=== PATIENT | female | born 1950 | race Caucasian/White ===

== ENCOUNTER 2025-01-27 19:20 | Emergency (ER) | payer OTHER ==
[2025-01-27] MEDS ORDERED: CEFTRIAXONE 1000 MG/VIAL ONE (19:45)
[2025-01-27] MEDS ORDERED: IBUPROFEN 400 MG TAB ONE (19:45)
[2025-01-27] MEDS ORDERED: VANCOMYCIN 1 GM/VIAL ONE (19:46)
[2025-01-27] MEDS ORDERED: NA CHLORIDE 0.9% 500 ML ONE (19:46)
[2025-01-27] MEDS ORDERED: NA CHLORIDE 0.9% 1,000 ML ONE (19:46)
[2025-01-27 20:28] LABS: Absolute Lymphocytes (CBC) 0.6 K/uL (0.7-4.9); Hematocrit 37.4 % (36.0-45.0); Hemoglobin 12.8 g/dL (12.0-15.0); MCH 30.3 pg (27.0-35.0); MCHC 34.3 g/dL (32.0-36.0); MCV 88.3 fL (80-100); MPV 8.3 fL (7.6-11.3); Nucleated RBC Absolute Count 0.0 (0-0); Nucleated Red Blood Cells % 0.0 % (0-0); RBC Red Blood Cell Count 4.23 M/uL (3.86-4.86); White Blood Count 10.60 thou/uL (4.3-10.9)
[2025-01-27 20:35] LABS: PT Prothrombin Time 13.6 SECONDS (10-13.0); PTT, Activated Partial Thromb 33.4 SECONDS (27.2-37.4); Protime INR 1.21
[2025-01-27 20:44] LABS: ALT/SGPT 88.0 U/L (13-56); AST/SGOT 51.0 U/L (15-37); Albumin 3.2 g/dL (3.4-5.0); Albumin/Globulin Ratio 0.8 (1.1-1.8); Alkaline Phosphatase 87.0 U/L (45-117); Anion Gap 10.8 mEq/L (5.0-15.0); BUN Blood Urea Nitrogen 24.0 mg/dL (7-18); Globulin 4.2 g/dL (2.3-3.5); Glucose Level 378.0 mg/dL (74-106); Lipase 28.0 U/L (13-75); Potassium 3.8 mEq/L (3.5-5.1)
[2025-01-27 20:53] LABS: NT PRO-BNP 462.0 pg/mL (<125); Troponin High Sensitivity 10.2 pg/mL (<58.9)
[2025-01-27 20:56] LABS: Influenza A Ag Negative; Influenza B Ag Negative; SARS-CoV-2 Antigen Rapid Res Negative (Negative)
[2025-01-27 21:49] LABS: Sqamous Epithelial <5 /HPF (None Seen); Urine Culture Reflex Order REFLEXED; Urine Microscopic Reflex YN ORDER UMIC; Urine WBC Clump Occasional /HPF (None Seen)
--- NOTE | 2025-01-27 23:31 | EDPHYS ---
Physician Documentation [facility] Name: Lucina Schaefer Age: 74 yrs Sex: Female : 1950 Arrival Date: 01/27/2025 Time: 19:20 Bed 17 Private MD: ED Physician Denis Harrison HPI: 01/27 19:23 This 74 yrs old Other Race Female presents to ER via Unassigned with complaints of sp4 Fever, Low Back Pain, Urinary Problem. 01/28 19:22 Very pleasant 24-year-old female presents with acute onset urinary discomfort feeling sp4 unwell and fever. . 19:23 Patient has history of poorly controlled diabetes, hypertension and hypothyroidism.. sp4 Historical: - Allergies: 00:10 Penicillins; ss12 00:10 Tape; ss12 - Home Meds: 00:10 metformin 1,000 mg Oral tablet [Active]; simvastatin 20 mg Oral tablet [Active]; ss12 bisoprolol-hydrochlorothiazide oral [Active]; [place] Thyroid 120 mg Oral tablet [Active]; - PMHx: 00:10 Diabetes mellitus; Hypertensive disorder; Hypothyroidism; ss12 - PSHx: 00:10 Ligation of fallopian tube; ss12 - Immunization history:: Adult Immunizations up to date. - Infectious Disease History:: Denies. - Social history:: Smoking status: Patient denies any tobacco usage or history of. - Family history:: not pertinent. ROS: 19:23 Constitutional: Positive for fever, positive for feeling unwell, positive for urinary sp4 frequency 19:23 All other systems are negative, Exam: 19:23 Constitutional: This is a well developed, well nourished patient who is awake, alert, sp4 and in no acute distress. Head/Face: Normocephalic, atraumatic. Eyes: Pupils equal round and reactive to light, extra-ocular motions intact. Lids and lashes normal. Conjunctiva and sclera are not injected. Cornea within normal limits. Periorbital areas with no swelling, redness, or edema. ENT: Nares patent. No nasal discharge, no septal abnormalities noted. Tympanic membranes are normal and external auditory canals are clear. Oropharynx with no redness, swelling, or masses, exudates, or evidence of obstruction, uvula midline. Mucous membranes moist. Neck: Trachea midline, no thyromegaly or masses palpated, and no cervical lymphadenopathy. Supple, full range of motion without nuchal rigidity, or vertebral point tenderness. Chest/axilla: Normal chest wall appearance and motion. Nontender with no deformity. No lesions are appreciated. Cardiovascular: Regular rate and rhythm with a normal S1 and S2. No gallops, murmurs, or rubs. No pulse deficits. Respiratory: Lungs have equal breath sounds bilaterally, clear to auscultation and percussion. No rales, rhonchi or wheezes noted. No increased work of breathing, no retractions or nasal flaring. Abdomen/GI: Soft, with normal bowel sounds. No distension or tympany. No guarding or rebound. No evidence of tenderness throughout. Back: No spinal tenderness. No costovertebral tenderness. Skin: Warm, dry with normal turgor. Normal color with no rashes, no lesions, and no evidence of cellulitis. MS/ Extremity: Pulses equal, no cyanosis. Neurovascular intact. Full, normal range of motion. Neuro: Awake and alert, GCS 15, oriented to person, place, time, and situation. Cranial nerves II-XII grossly intact. Motor strength 5/5 in all extremities. Sensory grossly intact. Psych: Awake, alert, with orientation to person, place and time. Behavior, mood, and affect are within normal limits 19:58 ECG was reviewed by the Attending Physician. EKG at 2028 normal sinus rhythm rate 98 sp4 normal EKG. Vital Signs: 01/27 19:33 BP 151 / 55; Pulse 96; Resp 18; Temp 101.3; Pulse Ox 100% ; Weight 94.35 kg; Height 5 cp4 ft. 7 in. ; Pain 7/10; 20:53 BP 159 / 73; Pulse 98; Resp 18; Pulse Ox 96% on R/A; ss12 21:30 BP 142 / 71; Pulse 94; Resp 16; Pulse Ox 96% on R/A; ss12 22:30 BP 134 / 61; Pulse 92; Resp 16; Pulse Ox 94% on R/A; ss12 23:45 BP 125 / 58; Pulse 86; Resp 16; Pulse Ox 95% on R/A; ss12 19:33 Body Mass Index 32.58 (94.35 kg, 170.18 cm) cp4 19:33 Pain Scale: Adult cp4 [place] Coma Score: 23:45 Eye Response: spontaneous(4). Motor Response: obeys commands(6). Verbal Response: ss12 oriented(5). Total: 15. MDM: 19:24 Medical Screening Exam initiated 01/28 19:28 Differential diagnosis: viral Infection, bacterial infection, URI, bronchitis, sp4 pneumonia UTI, gastroenteritis. Data reviewed: vital signs, nurses notes, lab test result(s). Consideration of Admission/Observation Escalation of care including admission/observation considered. 01/27 19:24 Order name: CBC with Diff; Complete Time: 22: [facility] 01/27 19:24 Order name: CMP; Complete Time: 22: [facility] 01/27 19:24 Order name: Lipase; Complete Time: : [facility] 01/27 19:24 Order name: UA Rfx [place] Cult if indicated; Complete Time: 22: [facility] 01/27 19:37 Order name: BNP; Complete Time: 22: [facility] 01/27 19:37 Order name: Blood Culture Adult (2) [facility] 01/27 19:37 Order name: Lactate w/ 2H reflex if indic.; Complete Time: 22: [facility] 01/27 19:37 Order name: Protime (+inr); Complete Time: 22: [facility] 01/27 19:37 Order name: Ptt, Activated; Complete Time: 22: [facility] 01/27 19:37 Order name: Troponin HS; Complete Time: 22: [facility] 01/27 19:52 Order name: COVID-19 Ag + Flu A+B Ag; Complete Time: : [facility] 01/27 20:46 Order name: Glucose, Ancillary Testing; Complete Time: 22: [facility] 01/27 21:53 Order name: Urine Culture [facility] 01/27 23:05 Order name: Glucose, Ancillary Testing; Complete Time: 23: [facility] 01/27 19:24 Order name: IV Saline Lock; Complete Time: 20: [facility] 01/27 19:24 Order name: Labs collected and sent; Complete Time: 20: [facility] 01/27 19:37 Order name: Accucheck; Complete Time: 20: [facility] 01/27 19:37 Order name: Cardiac monitoring; Complete Time: 20: [facility] 01/27 19:37 Order name: EKG - Nurse/Tech; Complete Time: 20:25 sp4 01/27 19:37 Order name: IV Saline Lock - Large Bore; Complete Time: 20:20 sp4 01/27 19:37 Order name: Labs collected and sent; Complete Time: 20:20 sp4 01/27 19:37 Order name: O2 Per Protocol; Complete Time: 20:20 sp4 01/27 19:37 Order name: O2 Sat Monitoring; Complete Time: 20:20 sp4 01/27 19:37 Order name: Vital Signs; Complete Time: 20:20 sp4 EC/27 20:29 Rate is 98 beats/min. Rhythm is regular, Normal Sinus Rhythm. QRS [place] is Normal. [place] sp4 interval is normal. QRS interval is normal. QT interval is normal. No Q waves. T waves are Normal. No ST changes noted. Clinical impression: Normal ECG. Interpreted by me. Reviewed by me. Administered Medications: 20:05 Drug: Ibuprofen PO 800 mg PO once Route: PO; [facility] 01/28 00:20 Follow up: Response: No adverse reaction [facility] 01/27 20:05 Drug: NS 0.9% IV (30 ml/kg) 30 ml/kg IV at bolus once; Sepsis Protocol; to be given as ss12 a bolus over 90 minutes Route: IV; Rate: bolus; Site: right antecubital; 21:00 Follow up: Response: No adverse reaction; IV Status: Completed infusion; IV Intake: ss12 1000ml 20:18 Drug: Rocephin - Rocephin (cefTRIAXone) IVPB 1 grams IVPB once over 30 mins; (mix in 50 ss12 mL NS) Route: IVPB; Infused Over: 30 mins; Site: right antecubital; 20:45 Follow up: Response: No adverse reaction; IV Status: Completed infusion; IV Intake: [id number] 20:20 Drug: vancoMYCIN IVPB 2 grams IVPB at calculated rate once Route: IVPB; Rate: ss12 calculated rate; Site: left antecubital; 23:00 Follow up: Response: No adverse reaction; IV Status: Completed infusion; IV Intake: ss12 500ml 20:23 Not Given (pt took acetaminophen before coming to the hospital): [id number] mg ss12 PO once Disposition: 01/28 19:29 Chart complete. sp4 Disposition Summary: 01/27/25 23:30 Discharge Ordered Notes: We advise strict diabetic diet Location: Home sp4 Problem: new sp4 Symptoms: have improved sp4 Condition: Stable sp4 Diagnosis - Acute UTI, acute febrile illness sp4 Followup: sp4 - With: Private Physician - When: 7 - 10 days - Reason: Recheck today's complaints Discharge Instructions: - Discharge Summary Sheet sp4 - Urinary Tract Infection, Adult, [id number] sp4 - Diabetes Mellitus and Nutrition, Adult sp4 Forms: - Patient Portal Instructions sp4 Prescriptions: - cefdinir 300 mg Oral capsule - take 1 capsule ORAL route every 12 hours for 10 days; 20 capsule; Refills: 0, sp4 Product Selection Permitted - ondansetron 8 mg Oral Tablet,disintegrating - take 1 tablet ORAL route every 8 hours PRN nausea; 30 tablet; Refills: 0, sp4 Product Selection Permitted Signatures: Dispatcher [employer] EDMS Denis Harrison MD MD sp4 Emerita Nolasco Shamaila, RN RN ss12 Corrections: (The following items were deleted from the chart) 01/27 19:38 19:38 PROBNP+C.LAB.BRZ ordered. EDMS EDMS 19:38 19:38 BLOOD CULTURE*+BA.LAB.BRZ ordered. EDMS EDMS 19:38 19:38 LACTATE+C.LAB.BRZ ordered. EDMS EDMS 19:38 19:38 PROTIME (+INR)+COAG.LAB.BRZ ordered. EDMS EDMS 19:38 19:38 PTT, ACTIVATED+COAG.LAB.BRZ ordered. EDMS EDMS 19:38 19:38 Troponin High Sensitivity+C.LAB.BRZ ordered. EDMS EDMS 01/28 00:18 00:10 Allergies: No Known Allergies; 12 12 00:18 00:10 PSHx: Ligation of fallopian tube; 12 ss12
--- NOTE | 2025-01-27 23:31 | ER ---
Nurse's Notes [facility] Name: Lucina Schaefer Age: 74 yrs Sex: Female : 1950 Arrival Date: 01/27/2025 Time: 19:20 Bed 17 Private MD: Diagnosis: Acute UTI, acute febrile illness Presentation: 01/27 19:33 Chief complaint: Patient states: was just at urgent care and was told she might have a cp4 kidney infection. States urgency and burning with urination for 3 days. States she thinks she was given tylenol at urgent care at 1700. Coronavirus screen: Client denies travel out of the [place] in the last 14 days. At this time, the client does not indicate any symptoms associated with coronavirus-19. Ebola Screen: Patient negative for fever greater than or equal to 101.5 degrees Fahrenheit, and additional compatible Ebola Virus Disease symptoms Patient denies exposure to infectious person. Patient denies travel to an Ebola-affected area in the 21 days before illness onset. No symptoms or risks identified at this time. Initial Sepsis Screen: Does the patient meet any 2 criteria? Temp <36.0*C (96.8*F)) or > 38.3*C (100.9*F). HR > 90 bpm. Yes Does the patient have a suspected source of infection? No. Patient's initial sepsis screen is negative. Risk Assessment: Do you want to hurt yourself or someone else? Patient reports no desire to harm self or others. Onset of symptoms was January 24, 2025. 19:33 Method Of Arrival: Ambulatory cp4 19:33 Acuity: CARROLL 3 cp4 Triage Assessment: 19:33 General: Appears in no apparent distress. uncomfortable, Behavior is calm, cooperative, cp4 appropriate for age. Pain: Complains of pain in back Pain does not radiate. Pain currently is 7 out of 10 on a pain scale. Historical: - Allergies: 01/28 00:10 Penicillins; ss12 00:10 Tape; ss12 - Home Meds: 00:10 metformin 1,000 mg Oral tablet [Active]; simvastatin 20 mg Oral tablet [Active]; ss12 bisoprolol-hydrochlorothiazide oral [Active]; [place] Thyroid 120 mg Oral tablet [Active]; - PMHx: 00:10 Diabetes mellitus; Hypertensive disorder; Hypothyroidism; ss12 - PSHx: 00:10 Ligation of fallopian tube; ss12 - Immunization history:: Adult Immunizations up to date. - Infectious Disease History:: Denies. - Social history:: Smoking status: Patient denies any tobacco usage or history of. - Family history:: not pertinent. Screenin/27 22:00 [facility] ED Fall Risk Assessment (Adult) History of falling in the last 3 months, ss12 including since admission No falls in past 3 months (0 pts) Confusion or Disorientation No (0 pts) Intoxicated or Sedated No (0 pts) Impaired Gait No (0 pts) Mobility Assist Device Used No (0 pt) Altered Elimination No (0 pt) Score/Fall Risk Level 0 - 2 = Low Risk Oriented to surroundings, Maintained a safe environment, Educated pt \T\ family on fall prevention, incl call for assistance when getting out of bed, Assessed \T\ reinforced patient's understanding of fall precautions, Provided non-skid footwear. Abuse screen: Denies threats or abuse. Denies injuries from another. Nutritional screening: No deficits noted. 22:00 Tuberculosis screening: No symptoms or risk factors identified. ss12 Assessment: 19:45 General: Appears in no apparent distress. comfortable, Behavior is calm, cooperative, ss12 quiet. General: Behavior is calm. Pain: Denies pain. Neuro: No deficits noted. Level of Consciousness is awake, alert, obeys commands, Oriented to person, place, time, situation. Cardiovascular: No deficits noted. Capillary refill < 3 seconds Patient's skin is warm and dry. Respiratory: Airway is patent Respiratory effort is even, unlabored, Respiratory pattern is regular, symmetrical. GI: No deficits noted. No signs and/or symptoms were reported involving the gastrointestinal system. : No deficits noted. Reports urinary frequency. EENT: No deficits noted. No signs and/or symptoms were reported regarding the EENT system. Derm: No deficits noted. No signs and/or symptoms reported regarding the dermatologic system. Musculoskeletal: No deficits noted. No signs and/or symptoms reported regarding the musculoskeletal system. 20:00 Reassessment: Patient appears in no apparent distress at this time. Patient and/or ss12 family updated on plan of care and expected duration. Pain level reassessed. Patient is alert, oriented x 3, equal unlabored respirations, skin warm/dry/pink. 21:00 Reassessment: Patient appears in no apparent distress at this time. Patient and/or ss12 family updated on plan of care and expected duration. Pain level reassessed. Patient is alert, oriented x 3, equal unlabored respirations, skin warm/dry/pink. 22:30 Reassessment: Patient appears in no apparent distress at this time. Patient and/or ss12 family updated on plan of care and expected duration. Pain level reassessed. Patient is alert, oriented x 3, equal unlabored respirations, skin warm/dry/pink. Vital Signs: 19:33 BP 151 / 55; Pulse 96; Resp 18; Temp 101.3; Pulse Ox 100% ; Weight 94.35 kg; Height 5 cp4 ft. 7 in. ; Pain 7/10; 20:53 BP 159 / 73; Pulse 98; Resp 18; Pulse Ox 96% on R/A; ss12 21:30 BP 142 / 71; Pulse 94; Resp 16; Pulse Ox 96% on R/A; ss12 22:30 BP 134 / 61; Pulse 92; Resp 16; Pulse Ox 94% on R/A; ss12 23:45 BP 125 / 58; Pulse 86; Resp 16; Pulse Ox 95% on R/A; ss12 19:33 Body Mass Index 32.58 (94.35 kg, 170.18 cm) cp4 19:33 Pain Scale: Adult cp4 [place] Coma Score: 23:45 Eye Response: spontaneous(4). Motor Response: obeys commands(6). Verbal Response: ss12 oriented(5). Total: 15. ED Course: 19:23 Patient arrived in ED. im 19:23 Denis Harrison MD is Attending Physician. sp4 19:33 Arm band placed on right wrist. Patient placed in waiting room. cp4 19:38 Sue Rogers, RN is Primary Nurse. ss12 19:38 Triage completed. cp4 20:24 COVID-19 Ag + Flu A+B Ag Sent. ss12 20:37 EKG done, by electrical and instrument technician. reviewed by Denis Harrison MD. ts3 20:38 Initial lab(s) drawn, by ED staff, sent to lab. Inserted saline lock: 20 gauge in right ts3 antecubital area, using aseptic technique. Blood collected. Flushed with 10 mL NS. 22:00 No provider procedures requiring assistance completed. ss12 22:20 Urine Culture Sent. ss12 23:57 Patient has correct armband on for positive identification. Provided Education on: plan ss12 of care. 01/28 00:10 IV discontinued, intact, bleeding controlled, No redness/swelling at site. Pressure ss12 dressing applied. Administered Medications: 01/27 20:05 Drug: Ibuprofen PO 800 mg PO once Route: PO; ss12 01/28 00:20 Follow up: Response: No adverse reaction ss12 01/27 20:05 Drug: NS 0.9% IV (30 ml/kg) 30 ml/kg IV at bolus once; Sepsis Protocol; to be given as ss12 a bolus over 90 minutes Route: IV; Rate: bolus; Site: right antecubital; 21:00 Follow up: Response: No adverse reaction; IV Status: Completed infusion; IV Intake: ss12 1000ml 20:18 Drug: Rocephin - Rocephin (cefTRIAXone) IVPB 1 grams IVPB once over 30 mins; (mix in 50 ss12 mL NS) Route: IVPB; Infused Over: 30 mins; Site: right antecubital; 20:45 Follow up: Response: No adverse reaction; IV Status: Completed infusion; IV Intake: [id number] 20:20 Drug: vancoMYCIN IVPB 2 grams IVPB at calculated rate once Route: IVPB; Rate: ss12 calculated rate; Site: left antecubital; 23:00 Follow up: Response: No adverse reaction; IV Status: Completed infusion; IV Intake: ss12 500ml 20:23 Not Given (pt took acetaminophen before coming to the hospital): [id number] mg ss12 PO once Medication: 22:00 VIS not applicable for this client. ss12 Intake: 20:45 IV: 10ml; Total: 10ml. ss12 21:00 IV: 1000ml; Total: 1010ml. ss12 23:00 IV: 500ml; Total: 1510ml. ss12 Outcome: 23:30 Discharge ordered by MD. marshall 01/28 00:10 Discharged to home ambulatory, ss12 Condition: stable Discharge instructions given to patient, family, Instructed on discharge instructions, follow up and referral plans. Demonstrated understanding of instructions, follow-up care, medications, Prescriptions given X 2, 00:18 Patient left the ED. 12 Addendum: 01/30/2025 15:40 Addendum: Culture Results: Positive blood culture. Phone call Attempt #1 No answer, s s Left VM. 02/05/2025 11:01 Addendum: Culture Results: Positive blood culture. Phone call Attempt #2 No answer, j l7 left vm. Signatures: Purvi Diaz RN RN ss Alexus Mcgill RN RN jl7 Denis Harrison MD MD sp4 Rachel Gipson Christina cp4 Thalia Calderon ts3 Sue Rogers RN RN 12 Corrections: (The following items were deleted from the chart) 01/27 20:24 20:23 Rocephin - Rocephin (cefTRIAXone) IVPB 1 grams IVPB in right antecubital over 30 ss12 mins [facility] 23:58 20:45 Reassessment: Patient appears in no apparent distress at this time. Patient 12 and/or family updated on plan of care and expected duration. Pain level reassessed. Patient is alert, oriented x 3, equal unlabored respirations, skin warm/dry/pink. [facility] 01/28 00:18 00:10 Allergies: No Known Allergies; 12 [facility] 00:18 00:10 PSHx: Ligation of fallopian tube; [place] [id number]
[2025-01-28 00:23] VITALS: TEMP 101.3
[2025-01-28 00:31] VITALS: BP 125/58; O2SAT 95
== END 2025-01-28 00:18 | disposition home or self-care (01) ==
LOC: ER 19:20
DX: N39.0 Urinary tract infection, site not specified (principal); Z11.52 Encounter for screening for COVID-19
CPT/HCPCS: 93005; 87040 ×2; 87088; 85025; 81001; 87086; 36415; 87205 ×4; 85610; 82947 ×2; 83605; 85730; 87077 ×2; 87186 ×2; 84484; 83690; 80053; 83880; 99284; 87428; J3370; J7040; J7030; J0696